=== PATIENT | female | born 1990 | race Caucasian/White ===

== ENCOUNTER → 2021-12-26 | Outpatient (CLI) | payer BC | LOC: M WHC 15:00 | PROVIDERS: ATTEND Advanced Practice Midwife | DX: Z34.92 Encounter for supervision of normal pregnancy, unspecified, second trimester (principal); Z3A.20 20 weeks gestation of pregnancy ==

== ENCOUNTER → 2022-01-16 | Outpatient (CLI) | payer BC | LOC: M WHC 08:06 | PROVIDERS: ATTEND Advanced Practice Midwife | DX: Z34.92 Encounter for supervision of normal pregnancy, unspecified, second trimester (principal); Z3A.24 24 weeks gestation of pregnancy ==

== ENCOUNTER → 2022-02-11 | Outpatient (CLI) | payer BC ==
[2022-02-11 09:38] LABS: HEMATOCRIT 34.6 % (36.0-47.0); HEMOGLOBIN 11.2 g/dl (12.0-15.5); MEAN CORPUSCULAR HEMOGLOBIN 30.1 pg (27.0-33.0); MEAN CORPUSCULAR HGB CONC 32.4 g/dl (32.0-36.5); PLATELET COUNT, AUTOMATED 199 10^3/uL (150-450); RED BLOOD COUNT 3.72 10^6/uL (4.00-5.40); WHITE BLOOD COUNT 12.5 10^3/uL (4.0-10.0)
[2022-02-11 11:04] LABS: GC DNA AMPLIFICATION NEGATIVE (NEGATIVE)
== END ==
LOC: M LAB 07:10
PROVIDERS: ATTEND Advanced Practice Midwife
DX: Z34.82 Encounter for supervision of other normal pregnancy, second trimester (principal)

== ENCOUNTER → 2022-02-26 | Outpatient (CLI) | payer BC | LOC: M WHC 06:48 | PROVIDERS: ATTEND Obstetrics & Gynecology | DX: Z36.2 Encounter for other antenatal screening follow-up (principal); Z3A.29 29 weeks gestation of pregnancy ==

== ENCOUNTER → 2022-04-19 | Outpatient (CLI) | payer BC | LOC: M WHC 11:38 | PROVIDERS: ATTEND Advanced Practice Midwife | DX: O26.843 Uterine size-date discrepancy, third trimester (principal); Z3A.38 38 weeks gestation of pregnancy ==

== ENCOUNTER → 2022-04-19 | Outpatient (REF) | payer BC | LOC: M SFHCWAGY 16:46 | PROVIDERS: ATTEND Advanced Practice Midwife | DX: Z36.85 Encounter for antenatal screening for Streptococcus B (principal) ==

== ENCOUNTER 2022-05-09 05:59 | Inpatient (IN) | payer BC ==
[~2022-05-09] VITALS: Ht 154.9 cm; Wt 101.6 kg
[2022-05-09] VITALS (30 sets, daily range): BP systolic 106–162; BP diastolic 63–98
[2022-05-09] MEDS ORDERED: PREN1CHW6 PO (06:21)
[2022-05-09] MEDS ORDERED: HOME MED LIST COMPLETE! XX SCH (06:25)
[2022-05-09] MEDS ORDERED: LR 1,000 ML IV ONE (06:50)
[2022-05-09] MEDS ORDERED: LACTATED RINGER'S 1000 ML IV STA (06:53)
[2022-05-09] MEDS ORDERED: OXYTOCIN DRIP 30 UNITS in IV 1 EA IV PRN ×4 (06:55)
[2022-05-09] MEDS ORDERED: LR 1,000 ML IV SCH (06:55)
[2022-05-09] MEDS ORDERED: CARBOPROST TROMETHAMINE 250 MCG/ML AMP IM PRN (06:55)
[2022-05-09] MEDS ORDERED: LIDOCAINE 1% MDV 20ML VIAL INFIL PRN (06:55)
[2022-05-09] MEDS ORDERED: OXYTOCIN INJ 10 UNITS/ML VIAL (J2590) IM PRN (06:55)
[2022-05-09] MEDS ORDERED: TRANEXAMIC ACID INJection 1,000 MG in NS 100 ML IV PRN (06:55)
[2022-05-09 07:25] LABS: HEMATOCRIT 35.4 % (36.0-47.0); HEMOGLOBIN 11.4 g/dl (12.0-15.5); MEAN CORPUSCULAR HEMOGLOBIN 28.1 pg (27.0-33.0); MEAN CORPUSCULAR HGB CONC 32.2 g/dl (32.0-36.5); MEAN CORPUSCULAR VOLUME 87.4 fl (80.0-96.0); PLATELET COUNT, AUTOMATED 175 10^3/uL (150-450); RED BLOOD COUNT 4.05 10^6/uL (4.00-5.40); WHITE BLOOD COUNT 11.9 10^3/uL (4.0-10.0)
[2022-05-09] MEDS ORDERED: FENTANYL/ROPIVACAINE/NACL BAG 100 ML EPIDURAL SCH (07:40)
[2022-05-09] MEDS ORDERED: NALOXONE INJ 0.4MG/1ML VIAL (J2310 PER 1MG) IV PRN (07:40)
[2022-05-09] MEDS ORDERED: LR 500 ML IV PRN (07:40)
[2022-05-09] MEDS ORDERED: ONDANSETRON 4MG 2ML VIAL IV PRN (07:40)
[2022-05-09] MEDS ORDERED: EPIDURAL/PCA KEYS XX PRN (07:40)
[2022-05-09] MEDS ORDERED: ePHEDrine SULFATE 25 MG/5 ML(5MG/ML) SYRINGE IVP PRN (07:40)
[2022-05-09] MEDS ORDERED: diphenhydrAMINE 50MG/ML VIAL (J1200) IV PRN (07:40)
[2022-05-09] MEDS ORDERED: FENTANYL 2MCG/ML ROPIVACAINE 0.2% IN 0.9% NACL 100ML IVBAG As Ordered ONE (07:42)
[2022-05-09 07:52] LABS: ALT/SGPT 13 U/L (12-78); BILIRUBIN,TOTAL 0.2 MG/DL (0.2-1.0); GLOMERULAR FILTRATION RATE > 60.0 (>60); LDH LACTATE DEHYDROGENASE 162 U/L (84-246); URIC ACID 5.1 MG/DL (2.6-6.0)
[2022-05-09 08:00] LABS: TOTAL PROTEIN,RANDOM URINE 52.2 MG/DL (0.0-12.0)
[2022-05-09] MEDS ORDERED: ACETAMINOPHEN 500 MG TAB PO PRN (10:30)
[2022-05-09] MEDS ORDERED: DOCUSATE SODIUM 100MG CAPSULE PO PRN (10:30)
[2022-05-09] MEDS ORDERED: DIBUCAINE 1% OINTMENT 30GM TOP PRN (10:30)
[2022-05-09] MEDS ORDERED: IBUPROFEN 600MG TAB PO PRN (10:30)
[2022-05-09] MEDS ORDERED: ACETAMINOPHEN TAB 650MG DOSE (2X325MG) PO PRN (10:30)
[2022-05-09] MEDS ORDERED: RHOGAM 300 MCG (1500 IU) INJ (J2790) IM SCH (10:30)
[2022-05-09] MEDS ORDERED: OXYTOCIN DRIP 30 UNITS in IV 1 EA IV ONE (10:30)
[2022-05-09] MEDS ORDERED: METHYLERGONOVINE MALEATE 0.2 MG TAB PO PRN (10:30)
[2022-05-09] MEDS ORDERED: IBUPROFEN 800 MG TAB PO PRN (10:30)
[2022-05-10 06:00] VITALS: BP 129/72
[2022-05-10] MEDS ORDERED: PRENATAL VITAMINS CHEWABLE TABLET PO SCH (09:00)
[2022-05-10] MEDS ORDERED: IBUP80TA PO (16:05)
[2022-05-10] MEDS ORDERED: ACET-683 PO (16:05)
[2022-05-11] MEDS ORDERED: MEASLES,MUMPS,RUBELLA VACCINE INJ (MMR-II) (90707) SC.IMMUN ONE (09:00)
== END 2022-05-10 17:40 | disposition home or self-care (01) | DRG 560 ==
LOC: M LDO 05:59 → M LDI 06:38 → M PED 13:06
PROVIDERS: ADMIT Advanced Practice Midwife; ATTEND Advanced Practice Midwife
PROC: 10E0XZZ Delivery of Products of Conception, External Approach (ICD-10-PCS; principal; 2022-05-09)
PROC: 0KQM0ZZ Repair Perineum Muscle, Open Approach (ICD-10-PCS; 2022-05-09)
DX: O69.82X0 Labor and delivery complicated by other cord entanglement, without compression, not applicable or unspecified (principal); O70.1 Second degree perineal laceration during delivery; Z37.0 Single live birth; Z3A.39 39 weeks gestation of pregnancy

== ENCOUNTER → 2022-07-30 | Outpatient (CLI) | payer BC ==
[~2022-07-30] MED LIST: ACET-683 PO; IBUP-1022 PO; IBUP80TA PO; OXYC1TAB23 PO; PREN1CHW6 PO
== END ==
LOC: M LABSMTC 09:22
PROVIDERS: ATTEND Anesthesiology
DX: Z01.818 Encounter for other preprocedural examination (principal)

== ENCOUNTER 2022-07-31 06:55 | Day surgery (SDC) | payer BC ==
[~2022-07-31] VITALS: Ht 154.9 cm; Wt 90.7 kg
[~2022-07-31 06:55] MED LIST changes: -IBUP-1022 PO; -OXYC1TAB23 PO
[2022-07-31] MEDS ORDERED: LR 1,000 ML IV SCH ×2 (07:30→10:20)
[2022-07-31] MEDS ORDERED: BUPIVACAINE HCL 0.25% 10ML VIAL As Ordered ONE (08:04)
[2022-07-31] MEDS ORDERED: MIDAZOLAM INJ 2MG/2ML VIAL (J2250 PER 1MG) As Ordered ONE (08:05)
[2022-07-31] MEDS ORDERED: fentaNYL 100 MCG/2 ML INJECTION As Ordered ONE ×2 (08:05→08:45)
[2022-07-31] MEDS ORDERED: LIDOCAINE 2% 100MG/5ML SDV (FOR ANES.) As Ordered ONE (08:05)
[2022-07-31] MEDS ORDERED: propofoL 200 MG/20 ML VIAL As Ordered ONE (08:05)
[2022-07-31] MEDS ORDERED: ROCURONIUM BROMIDE 50MG/5ML VIAL As Ordered ONE (08:05)
[2022-07-31] MEDS ORDERED: ONDANSETRON 4MG 2ML VIAL As Ordered ONE (08:06)
[2022-07-31 08:09] LABS: HEMATOCRIT 37.6 % (36.0-47.0); HEMOGLOBIN 11.9 g/dl (12.0-15.5); MEAN CORPUSCULAR HEMOGLOBIN 28.4 pg (27.0-33.0); MEAN CORPUSCULAR HGB CONC 31.6 g/dl (32.0-36.5); MEAN CORPUSCULAR VOLUME 89.7 fl (80.0-96.0); PLATELET COUNT, AUTOMATED 263 10^3/uL (150-450); RED BLOOD COUNT 4.19 10^6/uL (4.00-5.40); WHITE BLOOD COUNT 9.9 10^3/uL (4.0-10.0)
[2022-07-31] MEDS ORDERED: ACETAMINOPHEN 1000MG 100ML IV BAG As Ordered ONE (08:10)
[2022-07-31] MEDS ORDERED: SUGAMMADEX SODIUM 500 MG/5 ML VIAL (BRIDION) As Ordered ONE (08:10)
[2022-07-31] MEDS ORDERED: KETOROLAC 60MG 2ML VIAL As Ordered ONE (08:10)
[2022-07-31] MEDS ORDERED: IBUP-1022 PO ×2 (08:33→10:43)
[2022-07-31] MEDS ORDERED: OXYC1TAB23 PO ×2 (08:34→10:43)
[2022-07-31] MEDS ORDERED: ESMOLOL INJ 100MG/10ML VIAL As Ordered ONE (08:48)
[2022-07-31] MEDS ORDERED: oxyCODONE 5MG TAB PO PRN (09:15)
[2022-07-31] MEDS ORDERED: fentaNYL 100 MCG/2 ML INJECTION IV PRN (09:15)
[2022-07-31] MEDS ORDERED: HYDROMORPHONE HCL 0.5 MG/ 0.5 ML SYRINGE (J1170 PER 1) IV PRN (09:15)
[2022-07-31] MEDS ORDERED: METOCLOPRAMIDE INJ 10MG/2ML VIAL IV PRN (09:15)
[2022-07-31] MEDS ORDERED: ONDANSETRON 4MG 2ML VIAL IV PRN (09:15)
[2022-07-31] MEDS ORDERED: PERCOCET 5MG/325MG TAB PO PRN (10:20)
[2022-07-31 11:00] VITALS: BP 140/82
== END 2022-07-31 11:05 | disposition home or self-care (01) ==
LOC: M SDC 06:55
PROVIDERS: ATTEND Specialist
DX: Z30.2 Encounter for sterilization (principal); R51.9 Headache, unspecified
CPT/HCPCS: 36415; 58661; 81025; 85027; 88302; J0131; J1100; J1885; J2250; J2405; J3010

== ENCOUNTER → 2023-09-09 | Outpatient (CLI) | payer BC ==
[~2023-09-09] MED LIST changes: +IBUP-1022 PO; +OXYC1TAB23 PO
[2023-09-09 08:09] LABS: BASO % 0.4 % (0.0-1.0); EOS # 0.1 10^3/uL (0.0-0.5); EOS % 0.6 % (0.0-3.0); HEMATOCRIT 43.3 % (36.0-47.0); HEMOGLOBIN 14.3 g/dl (12.0-15.5); LYMPH # 2.9 10^3/uL (1.5-5.0); LYMPH % 37.2 % (24.0-44.0); MEAN CORPUSCULAR HEMOGLOBIN 30.3 pg (27.0-33.0); MEAN CORPUSCULAR VOLUME 91.7 fl (80.0-96.0); MONO # 0.6 10^3/uL (0.0-0.8); MONO % 7.1 % (2.0-8.0); NEUTROPHILS # 4.3 10^3/uL (1.5-8.5); NEUTROPHILS % 54.3 % (36.0-66.0); PLATELET COUNT, AUTOMATED 236 10^3/uL (150-450); RED BLOOD COUNT 4.72 10^6/uL (4.00-5.40); WHITE BLOOD COUNT 7.9 10^3/uL (4.0-10.0)
[2023-09-09 08:24] LABS: HEMOGLOBIN A1c 5.1 % (4.0-6.0)
[2023-09-09 08:35] LABS: ALBUMIN 3.8 G/DL (3.2-5.2); ALKALINE PHOSPHATASE 59 U/L (46-116); ALT/SGPT 13 U/L (7.0-40); AST/SGOT 9 U/L (<34); BILIRUBIN,TOTAL 0.5 MG/DL (0.3-1.2); BLOOD UREA NITROGEN 14 MG/DL (9-23); CALCIUM LEVEL 9.2 MG/DL (8.5-10.1); CARBON DIOXIDE LEVEL 26 MMOL/L (20-31); CHLORIDE LEVEL 105 MMOL/L (98-107); CHOLESTEROL LEVEL 192 MG/DL (<200); CHOLESTEROL RISK RATIO 3.44 (<5); CREATININE FOR GFR 0.67 MG/DL (0.55-1.30); GLOMERULAR FILTRATION RATE > 60.0 (>60); GLUCOSE, FASTING 79 MG/DL (60-100); HDL CHOLESTEROL 55.7 MG/DL (>40); LDL CHOLESTEROL 111.3 MG/DL (<100); NON-HDL-C 136.3 MG/DL; POTASSIUM SERUM 4.4 MMOL/L (3.5-5.1); SODIUM LEVEL 135 MMOL/L (136-145); TOTAL PROTEIN 7.5 G/DL (5.7-8.2); TRIGLYCERIDES LEVEL 125 MG/DL (<150)
[2023-09-09 08:37] LABS: FREE T4 1.19 NG/DL (0.89-1.76); THYROID STIMULATING HORMONE 1.778 uIU/ML (0.55-4.78)
== END ==
LOC: M LAB 07:08
PROVIDERS: ATTEND Registered Nurse
DX: E66.9 Obesity, unspecified (principal)

== ENCOUNTER → 2023-10-06 | Outpatient (REF) | payer BC | LOC: M SFHCWAGY 08:05 | PROVIDERS: ATTEND Advanced Practice Midwife | DX: Z12.4 Encounter for screening for malignant neoplasm of cervix (principal) | CPT/HCPCS: 87624; G0123 ==

== ENCOUNTER → 2024-04-23 | Outpatient (REF) | LOC: M EMP 14:10 | PROVIDERS: ATTEND Family Medicine | DX: Z11.52 Encounter for screening for COVID-19 (principal); U07.1 COVID-19 ==

== ENCOUNTER → 2025-07-11 | Outpatient (REF) | payer BC ==
[~2025-07-11] MED LIST changes: -IBUP-1022 PO; +IBUP600T42 PO
[2025-07-13 14:17] LABS: HPV APTIMA Not Detected (Not Detected)
== END ==
LOC: M SFHCWAGY 13:25
PROVIDERS: ATTEND Advanced Practice Midwife
DX: Z12.4 Encounter for screening for malignant neoplasm of cervix (principal)